=== PATIENT | female | born 1940 | race Hispanic/Latino ===

== ENCOUNTER 2020-09-26 06:53 | Emergency (ER) | payer MEDICARE ==
[~2020-09-26] VITALS: Ht 157.5 cm; Wt 59.0 kg
[2020-09-26 07:02] VITALS: BP 162/84
[2020-09-26] MEDS ORDERED: LINA5TAB PO (07:31)
[2020-09-26] MEDS ORDERED: LISI1TAB51 PO (07:31)
[2020-09-26] MEDS ORDERED: ASPI-1443 PO (07:31)
[2020-09-26] MEDS ORDERED: VIT1CAPS5 PO (07:31)
[2020-09-26] MEDS ORDERED: DILT240C97 PO (07:31)
[2020-09-26] MEDS ORDERED: SIMV5TAB58 PO (07:31)
[2020-09-26] MEDS ORDERED: FAMO40TA7 PO (07:31)
[2020-09-26 08:25] VITALS: BP 137/78
[2020-09-26 08:26] LABS: BASOPHILS % (AUTO) 0.3 % (0.0-5.0); EOSINOPHILS % (AUTO) 0.5 % (0.0-8.0); HEMATOCRIT 33.6 % (36-48); LYMPHOCYTES % (AUTO) 5.1 % (21.0-51.0); MEAN CORPUSCULAR HEMOGLOBIN 29.4 pg (27.0-33.0); MEAN CORPUSCULAR HGB CONC 33.9 g/dL (32.0-36.0); MEAN CORPUSCULAR VOLUME 86.6 fL (79-99); MONOCYTES % (AUTO) 7.1 % (3.0-13.0); NEUTROPHILS % (AUTO) 86.7 % (40.0-77.0); PLATELET COUNT (AUTO) 281 K/uL (130-400); RED BLOOD CELL COUNT(AUTO) 3.88 MIL/uL (4.00-5.50); RED CELL DISTRIBUTION WIDTH 12.7 % (11.0-15.5); WHITE BLOOD COUNT (AUTO) 10.9 K/uL (4.8-10.8)
[2020-09-26 08:36] LABS: ALBUMIN 3.4 g/dL (3.5-5.0); BILIRUBIN,TOTAL 0.4 mg/dL (0.2-1.0); CREATININE 0.5 mg/dL (0.5-1.5); TOTAL PROTEIN, SERUM 6.9 g/dL (6.0-8.3)
[2020-09-26 08:51] LABS: POTASSIUM 3.1 mmol/L (3.5-5.1)
[2020-09-26] MEDS ORDERED: ACETAMINOPHEN 325 MG TAB ONE (09:13)
[2020-09-26 09:26] VITALS: BP 147/82
[2020-09-26] MEDS ORDERED: KCL 20 MEQ ERTAB PO ONE ×2 (09:56→10:00)
== END 2020-09-26 10:23 | disposition home or self-care (01) ==
LOC: EDH 06:53
DX: S01.81XA Laceration without foreign body of other part of head, initial encounter (principal); G89.29 Other chronic pain; M25.551 Pain in right hip; M25.552 Pain in left hip; I10 Essential (primary) hypertension; K21.9 Gastro-esophageal reflux disease without esophagitis; E11.9 Type 2 diabetes mellitus without complications; E78.00 Pure hypercholesterolemia, unspecified; Z79.82 Long term (current) use of aspirin; Z79.899 Other long term (current) drug therapy; Z79.84 Long term (current) use of oral hypoglycemic drugs; W18.39XA Other fall on same level, initial encounter; Y93.89 Activity, other specified; Y92.89 Other specified places as the place of occurrence of the external cause; Y99.8 Other external cause status
CPT/HCPCS: 36415; 70450; 70486; 72125; 72170; 80053; 85025; 93005

== ENCOUNTER → 2021-03-21 | Outpatient (CLI) | payer MEDICARE ==
[~2021-03-21] MED LIST: ASPI-1443 PO; DILT240C97 PO; FAMO40TA7 PO; LINA5TAB PO; LISI1TAB51 PO; SIMV5TAB58 PO; VIT1CAPS5 PO
== END | disposition home or self-care (01) ==
LOC: RAH 13:47
PROVIDERS: ATTEND Internal Medicine Cardiovascular Disease
DX: I08.0 Rheumatic disorders of both mitral and aortic valves (principal); I11.9 Hypertensive heart disease without heart failure; E11.9 Type 2 diabetes mellitus without complications; E78.5 Hyperlipidemia, unspecified; I25.3 Aneurysm of heart
CPT/HCPCS: 93306; 93356